=== PATIENT | female | born 1950 | race Caucasian/White ===

== ENCOUNTER 2016-04-11 13:15 | Outpatient (RCR) | payer MEDICARE, MEDICAID ==
--- OUTSIDE RECORDS SUMMARY | 2016-04-11 13:18 | XMS REPORT | Continuity of Care Document ---
Author Author [facility] Organization [facility] Address Unknown Phone Unavailable Care Team Providers Care Freight Unloader Name Role Phone Cecilio Mcqueen PCP Unavailable Source Comments Some departments are not documenting in the electronic medical record. If you do not see the information that you expected, contact Release of Information in the Health Information Management department at [phone] for further assistance in locating additional records.[facility] Active Allergies and Adverse Reactions Allergen Noted Date Severity Reactions Comments Albuterol 12/10/2009 RASH, SHORTNESS OF BREATH Bactrim 05/31/2010 HIVES Bleach 03/05/2010 RASH, SHORTNESS OF BREATH Latex 04/26/2010 RASH Lexapro 05/31/2010 SEE COMMENTS "throat swells" Sulfa (Sulfonamide 12/10/2009 RASH, SHORTNESS OF Antibiotics) BREATH, EDEMA Current Medications Prescription Sig. Disp. Refills Start End Date Status Date nortriptyline (PAMELOR) Take 50 mg by mouth At Active 10 mg PO capsule Bedtime Daily. alprazolam (XANAX) 0.25 Take 1 mg by mouth At Active mg PO tablet Bedtime as needed. LEVOTHYROXINE SODIUM Take 0.5 mg by mouth Active (SYNTHROID PO) Daily. DIPHENHYDRAMINE HCL Take by mouth Nightly as Active (BENADRYL ALLERGY PO) needed - Mr X 1. HYDROCODONE Take 500 mg by mouth. Active BIT/HOMATROPINE (HYDROCODONE COMPOUND PO) Cephalexin 500 mg PO Tab Take 1 Tab by mouth three Active times daily. lisinopril (PRINIVIL; Take 5 mg by mouth daily. Active ZESTRIL) 5 mg PO tablet ciprofloxacin (CIPRO) 250 Take 500 mg by mouth Active mg PO tablet twice daily. ESTRIOL MICRONIZED Insert or Apply to 60 g 3 06/26/19 Active (TESTOSTERONE 1%, ESTRIOL vaginal area. Use 1 gram 11 2MG, VAGINAL GEL) vaginally daily for 1 week then 1 gram 3 times a week Active Problems Problem Noted Date Malignant neoplasm of other specified sites of female breast 02/10/2010 Overview: Left breast Social History Tobacco Use Types Packs/Day Years Used Date Never Smoker Smokeless Tobacco: Never Used Alcohol Use Drinks/Week oz/Week Comments No Last Filed Vital Signs Vital Sign Reading Time Taken Blood Pressure 123/57 06/25/2010 11:58 AM CDT Pulse 83 06/25/2010 11:58 AM CDT Temperature 36.7 C (98 F) 06/25/2010 11:58 AM CDT Respiratory Rate 16 03/05/2010 12:14 PM [facility] Height 1.683 m (5' 6.25") 06/25/2010 11:58 AM CDT Weight 75.841 kg (167 lb 3.2 oz) 06/25/2010 11:58 AM CDT Body Mass Index 26.78 06/25/2010 11:58 AM CDT Oxygen Saturation 100% 06/25/2010 11:58 AM CDT Plan of Care Health Maintenance Due Date Last Done Comments Physical (Comprehensive) 12/12/1959 Exam Pertussis Vaccine 12/12/1963 Tetanus Vaccine 1969 Cervical Cancer Screening 1973 Colorectal Cancer 2002 Screening Breast Cancer Screening 02/04/2012 02/03/2010 Shingles Vaccine 2012 Influenza Vaccine 10/08/2015 Results from Last 3 Months Not on file
[2016-04-11 13:36] LABS: BASOPHILS # (AUTO) 0.1 10^3/uL (0.0-0.1); BASOPHILS % (AUTO) 1 % (0-10); EOSINOPHILS # (AUTO) 0.1 10^3/uL (0.0-0.3); EOSINOPHILS % (AUTO) 2 % (0-10); LYMPHOCYTES # (AUTO) 2.3 X 10^3 (1.0-4.0); LYMPHOCYTES % (AUTO) 35 % (12-44); MEAN CORPUSCULAR HEMOGLOBIN 31 PG (25-34); MEAN CORPUSCULAR HGB CONC 35 G/DL (32-36); MEAN CORPUSCULAR VOLUME 89 FL (80-99); MONOCYTES # (AUTO) 0.7 X 10^3 (0.0-1.0); MONOCYTES % (AUTO) 10 % (0-12); NEUTROPHILS # (AUTO) 3.4 X 10^3 (1.8-7.8); NEUTROPHILS % (AUTO) 53 % (42-75); PLATELET COUNT 259 10^3/uL (130-400); RED BLOOD COUNT 4.25 10^6/uL (4.35-5.85); RED CELL DISTRIBUTION WIDTH 12.7 % (10.0-14.5); WHITE BLOOD COUNT 6.5 10^3/uL (4.3-11.0)
[2016-04-11 14:20] LABS: ALANINE AMINOTRANSFERASE 17 U/L (0-55); ALBUMIN 4.2 G/DL (3.2-4.5); ANION GAP 9 MMOL/L (5-14); ASPARTATE AMINO TRANSFERASE 27 U/L (5-34); BILIRUBIN,TOTAL 0.3 MG/DL (0.1-1.0); BLOOD UREA NITROGEN 8 MG/DL (7-18); BUN/CREATININE RATIO 11; CALCIUM 9.4 MG/DL (8.5-10.1); CARBON DIOXIDE 27 MMOL/L (21-32); CHLORIDE 98 MMOL/L (98-107); CREATININE SERUM 0.76 MG/DL (0.60-1.30); GFR ESTIMATED > 60; GLUCOSE 83 MG/DL (70-105); POTASSIUM 4.1 MMOL/L (3.6-5.0); SODIUM 134 MMOL/L (135-145); TOTAL PROTEIN 6.9 G/DL (6.4-8.2)
== END 2016-07-10 | disposition home or self-care (01) ==
LOC: ONC 13:15
PROVIDERS: ATTEND Internal Medicine Hematology & Oncology
DX: C50.112 Malignant neoplasm of central portion of left female breast (principal); Z92.21 Personal history of antineoplastic chemotherapy; Z79.899 Other long term (current) drug therapy
CPT/HCPCS: 36415; 80053; 85025; 99213

== ENCOUNTER → 2017-01-06 | Outpatient (CLI) | payer MEDICARE, MEDICAID ==
--- NOTE | 2017-01-06 20:49 | Diagnostic Imaging Report ---
Bilateral diagnostic mammogram. Tomography was utilized. The current study was also evaluated with a Computer Aided Detection (CAD) system. INDICATION: History of left breast cancer. Upper left breast pain. Comparison exam of 10/07/2015 is reviewed. FINDINGS: There are post-lumpectomy changes and scarring seen in the left breast. Surgical clips in the left axilla are seen. There is no mass, architectural distortion, or suspicious cluster of calcifications seen developed from the prior exam. IMPRESSION: Stable mammographic findings. Ultrasound evaluation pending. ACR BI-RADS Category 0: Incomplete. (Needs additional imaging evaluation). Result letter will be mailed to the patient. Note: At least 10% of breast cancer is not imaged by mammography. Dictated by: Dictated on workstation # [id number]
--- NOTE | 2017-01-06 20:59 | Diagnostic Imaging Report ---
EXAMINATION: Left breast ultrasound. INDICATION: History of breast cancer. Upper left breast pain. FINDINGS: There is a hypoechoic focus seen at the 10:30 o'clock position, 5 cm from the nipple, at the area of the lumpectomy, measuring 0.6 x 0.2 cm. It is better seen on the antiradial plane and was poorly seen on the radial plane. It is similar to 10/07/2015 and is likely related to postsurgical scarring. No internal vascularity. No adjacent suspicious lesion is seen. This area corresponds to the area of pain. IMPRESSION: 6 mm hypoechoic focus at the 10:30 position, 5 cm from the nipple, is similar to the previous exam and is likely related to postsurgical scarring. ACR BI-RADS Category 2: Benign findings. Result letter will be mailed to the patient. Note: At least 10% of breast cancer is not imaged by mammography. Dictated by: Dictated on workstation # [id number]
== END ==
LOC: RAD 07:27
PROVIDERS: ATTEND Family Medicine
DX: R92.8 Other abnormal and inconclusive findings on diagnostic imaging of breast (principal); N64.4 Mastodynia; Z85.3 Personal history of malignant neoplasm of breast
CPT/HCPCS: 76642; 77066

== ENCOUNTER 2018-04-30 13:11 | Outpatient (RCR) | payer MEDICARE, MEDICAID | END 2018-07-29 | disposition home or self-care (01) | LOC: ONC 13:11 | PROVIDERS: ATTEND Internal Medicine Hematology & Oncology | DX: C50.112 Malignant neoplasm of central portion of left female breast (principal); Z92.21 Personal history of antineoplastic chemotherapy; Z79.899 Other long term (current) drug therapy | CPT/HCPCS: 99213 ==

== ENCOUNTER → 2018-05-21 | Outpatient (CLI) | payer MEDICARE, MEDICAID ==
--- NOTE | 2018-05-21 20:56 | Diagnostic Imaging Report ---
INDICATION: Routine screening. Comparison is made with prior mammograms from 01/06/2017 and 03/18/2015. 2-D and 3-D bilateral screening mammography was performed with Computer-Aided Detection (CAD) system. FINDINGS: Both breasts remain heterogeneously dense, limiting the sensitivity of mammography. Post therapeutic changes in the left breast are again noted. The parenchymal pattern appears stable. No mass or malignant-appearing microcalcifications are seen. The axillae are unremarkable. IMPRESSION: No mammographic features suspicious for malignancy are identified. ACR BI-RADS Category 2: Benign findings. Result letter will be mailed to the patient. Note: At least 10% of breast cancer is not imaged by mammography. Dictated by: Dictated on workstation # [id number]
== END ==
LOC: RAD 14:16
PROVIDERS: ATTEND Internal Medicine Hematology & Oncology
DX: Z12.31 Encounter for screening mammogram for malignant neoplasm of breast (principal); C50.112 Malignant neoplasm of central portion of left female breast
CPT/HCPCS: 77067

== ENCOUNTER → 2020-04-20 | Outpatient (CLI) | payer MEDICARE, MEDICAID ==
[2020-04-20 13:22] LABS: BASOPHILS # (AUTO) 0.1 10^3/uL (0.0-0.1); BASOPHILS % (AUTO) 1 % (0-10); EOSINOPHILS # (AUTO) 0.1 10^3/uL (0.0-0.3); EOSINOPHILS % (AUTO) 2 % (0-10); HEMATOCRIT 41 % (35-52); HEMOGLOBIN 13.5 g/dL (11.5-16.0); LYMPHOCYTES # (AUTO) 2.6 10^3/uL (1.0-4.0); LYMPHOCYTES % (AUTO) 44 % (12-44); MEAN CORPUSCULAR HEMOGLOBIN 31 pg (25-34); MEAN CORPUSCULAR HGB CONC 33 g/dL (32-36); MEAN CORPUSCULAR VOLUME 93 fL (80-99); MEAN PLATELET VOLUME 10.9 fL (9.0-12.2); MONOCYTES # (AUTO) 0.6 10^3/uL (0.0-1.0); MONOCYTES % (AUTO) 10 % (0-12); NEUTROPHILS # (AUTO) 2.6 10^3/uL (1.8-7.8); NEUTROPHILS % (AUTO) 43 % (42-75); PLATELET COUNT 195 10^3/uL (130-400)
[2020-04-20 13:39] LABS: ALANINE AMINOTRANSFERASE 17 U/L (0-55); ALBUMIN 4.1 GM/DL (3.2-4.5); ALKALINE PHOSPHATASE 65 U/L (40-136); BILIRUBIN,TOTAL 0.3 MG/DL (0.1-1.0); BUN/CREATININE RATIO 8; CALCIUM 9.2 MG/DL (8.5-10.1); CARBON DIOXIDE 29 MMOL/L (21-32); CHLORIDE 100 MMOL/L (98-107); CREATININE SERUM 0.75 MG/DL (0.60-1.30); GFR ESTIMATED > 60; GLUCOSE 83 MG/DL (70-105); POTASSIUM 3.9 MMOL/L (3.6-5.0); SODIUM 136 MMOL/L (135-145); TOTAL PROTEIN 7.1 GM/DL (6.4-8.2)
[2020-04-20 14:45] LABS: BILIRUBIN,URINE NEGATIVE (NEGATIVE); CLARITY,URINE CLEAR; COLOR,URINE YELLOW; GLUCOSE, URINE (UA) NEGATIVE (NEGATIVE); KETONES,URINE NEGATIVE (NEGATIVE); LEUKOCYTE ESTERASE ,URINE NEGATIVE (NEGATIVE); NITRITE,URINE NEGATIVE (NEGATIVE); PH,URINE 6.5 (5-9); PROTEIN,URINE NEGATIVE (NEGATIVE)
[2020-04-20 14:58] LABS: BACTERIA,URINE NEGATIVE /HPF; SQUAMOUS EPITHELIAL CELL,UR 0-2 /HPF
== END ==
LOC: EDSTATUS 07-30 08:51 → ONC 13:05
PROVIDERS: ATTEND Internal Medicine Hematology & Oncology
DX: C50.112 Malignant neoplasm of central portion of left female breast (principal); F41.8 Other specified anxiety disorders; I10 Essential (primary) hypertension; E03.9 Hypothyroidism, unspecified; R10.9 Unspecified abdominal pain; Z92.21 Personal history of antineoplastic chemotherapy; Z90.12 Acquired absence of left breast and nipple; Z92.3 Personal history of irradiation
CPT/HCPCS: 80053; 81000; 85025; G0463; 99213

== ENCOUNTER → 2020-04-27 | Outpatient (CLI) | payer MEDICARE, MEDICAID ==
[~2020-04-27] MED LIST: CATHETER FLUSH 10 ML SYR IV PRN; HOLD METFORMIN - RECEIVED CONTRAST 20 ML VIAL IV SCH; IOHEXOL 350 MG/ML 100 ML (OMNIPAQUE 350) VIAL IV ONE; NS 100 ML (IVPB) BAG IV ONE
--- NOTE | 2020-04-27 12:42 | Diagnostic Imaging Report ---
EXAMINATION: CT Abdomen Pelvis with and without intravenous contrast. TECHNIQUE: Precontrast acquisitions were acquired through the abdomen and pelvis. Multiple contiguous axial images were obtained through the abdomen and pelvis after the administration of intravenous contrast. All CT scans use one or more of the following dose optimizing techniques: automated exposure control, MA and/or KvP adjustment based on a patient size and exam type, or iterative reconstruction. HISTORY: Abdominal pain. COMPARISON: None available. FINDINGS: Lung bases: The lung bases are clear. Solid organs: The liver is normal without focal lesion. The gallbladder is normal. There is no biliary ductal dilation. Pancreas is normal. Spleen is normal. Adrenal glands are normal. The kidneys are normal without hydronephrosis. Bowel: A duodenal diverticulum is present. No bowel obstruction. The colon and appendix are normal. Peritoneum: There is no intraperitoneal free fluid or free air. No suspicious lymphadenopathy. Vasculature: Calcification of the aorta without aneurysm. Musculoskeletal: There is levocurvature of the lumbar spine. Degenerative changes of the spine without suspicious osseous lesion or compression fracture. Pelvis: The uterus is surgically absent. No adnexal mass. The urinary bladder is normal. IMPRESSION: 1. No acute abnormality in the abdomen or pelvis. Dictated by: Dictated on workstation # [id number]
== END ==
LOC: RAD 11:40
PROVIDERS: ATTEND Nurse Practitioner Adult Health
DX: R10.9 Unspecified abdominal pain (principal); Z85.3 Personal history of malignant neoplasm of breast
CPT/HCPCS: 74178

== ENCOUNTER → 2021-05-10 | Outpatient (CLI) | payer MEDICARE, MEDICAID ==
--- NOTE | 2021-05-11 13:08 | Diagnostic Imaging Report ---
INDICATION: Routine screening. COMPARISON: 05/21/2018 and 01/06/2017. TECHNIQUE: 2D and 3D bilateral screening mammography was performed with CAD. FINDINGS: Both breasts are heterogeneously dense, limiting the sensitivity of mammography. Post therapeutic changes in the left breast are again noted. The parenchymal pattern is stable. There are occasional benign calcifications. No mass or malignant-appearing microcalcifications are identified. There are surgical clips in the left axilla. IMPRESSION: No mammographic features suspicious for malignancy are identified. ACR BI-RADS Category 2: Benign findings. Result letter will be mailed to the patient. Note: At least 10% of breast cancer is not imaged by mammography. Dictated by: Dictated on workstation # [id number]
== END ==
LOC: RAD 14:30
PROVIDERS: ATTEND Nurse Practitioner Adult Health
DX: Z12.31 Encounter for screening mammogram for malignant neoplasm of breast (principal)
CPT/HCPCS: 77063; 77067